=== PATIENT | male | born 1955 | race Caucasian/White ===

== ENCOUNTER 2019-04-05 14:30 | Emergency (ER) | payer MEDICARE ==
[~2019-04-05] VITALS: Ht 182.9 cm; Wt 100.3 kg
[2019-04-05 14:53] VITALS: BP 126/77
--- NOTE | 2019-04-05 15:13 | NUR ---
PT C/O MULTIPLE AREAS OF BODY PAIN INCLUDING CERVICAL NECK TENDERNESS. C COLLAR PLACED, PT LYING ON GURNEY, CALL LIGHT WITHIN REACH.
[2019-04-05 15:28] LABS: BASOPHILS # (AUTO) 0.02 x10^3/uL (0-0.1); BASOPHILS % (AUTO) 0 % (0-1); EOSINOPHILS # (AUTO) 0.15 x10^3/uL (0-0.4); EOSINOPHILS % (AUTO) 2 % (1-7); LYMPHOCYTES # (AUTO) 1.63 x10^3/uL (1-3.4); LYMPHOCYTES % (AUTO) 20 % (22-44); MD NO; MEAN CORPUSCULAR HEMOGLOBIN 31.2 pg (27.5-34.5); MEAN CORPUSCULAR HGB CONC 32.8 g/dL (33.2-36.2); MEAN CORPUSCULAR VOLUME 94.9 fL (81-97); MEAN PLATELET VOLUME 7.5 fL (7.4-10.4); MONOCYTES # (AUTO) 0.63 x10^3/uL (0.2-0.8); MONOCYTES % (AUTO) 8 % (2-9); NEUTROPHILS # (AUTO) 5.68 x10^3/uL (1.8-6.8); NEUTROPHILS % (AUTO) 70 % (42-75); PLATELET COUNT 334 x10^3/uL (130-400); RED BLOOD COUNT 3.66 x10^6/uL (4.38-5.82); RED CELL DISTRIBUTION WIDTH 13.1 % (9.4-14.8)
[2019-04-05 15:39] LABS: ANION GAP 6 mmol/L (5-15); CALCIUM 9.2 mg/dL (8.5-10.1); CHLORIDE 108 mmol/L (98-107)
[2019-04-05 16:11] LABS: HCT (SEDRATE) 34.8 % (39.2-51.8)
[2019-04-05] MEDS ORDERED: NEOSPORIN OINT. PKT 1 PACKET ONE (16:50)
[2019-04-05] MEDS ORDERED: DIPH,PERTUSS(ACELL),TET VAC/PF 0.5 ML IM-VACC ONE (17:00)
--- NOTE | 2019-04-05 17:03 | NUR ---
PT REFUSING DRESSING TO TOE ULCERATION AND ARM SLING. PT STATES "I WILL JUST THROW AWAY SLING", "I'M NOT GOING TO DO ANY OF THOSE INSTRUCTIONS."
--- NOTE | 2019-04-05 17:09 | NUR ---
PT ALLOWED FOR TOE TO BE DRESSED AND THIS TECH PROVIDED NEW SOCKS PER PT REQUEST. PT REFUSED SLING TO BE APPLIED. STATED "I'M JUST GOING TO THROW IT AWAY."
== END 2019-04-05 17:07 | disposition home or self-care (01) ==
LOC: ED 17:01
DX: S42.032A Displaced fracture of lateral end of left clavicle, initial encounter for closed fracture (principal); L03.032 Cellulitis of left toe; W18.30XA Fall on same level, unspecified, initial encounter; Y93.89 Activity, other specified; Y92.89 Other specified places as the place of occurrence of the external cause; Y99.8 Other external cause status
CPT/HCPCS: 36415; 72020; 72050; 80048; 85025; 85651; 86140; 99284